=== PATIENT | male | born 2000 | race Caucasian/White ===

== ENCOUNTER 2022-05-20 17:34 | Emergency (ER) | payer OTHER ==
[~2022-05-20] VITALS: Ht 185.4 cm; Wt 89.0 kg
[2022-05-20 17:46] VITALS: BP 121/78
== END 2022-05-20 20:30 | disposition left against medical advice (07) ==
LOC: ER 17:34
DX: Z53.21 Procedure and treatment not carried out due to patient leaving prior to being seen by health care provider (principal)